=== PATIENT | male | born 1965 | race Caucasian/White ===

== ENCOUNTER 2016-09-25 10:32 | Day surgery (SDC) | payer OTHER ==
[2016-09-25] MEDS ORDERED: LIDOCAINE 1% 2 ML INJ ONE (10:42)
[2016-09-25] MEDS ORDERED: ceFAZolin 2 GM/DEXTROSE 100 ML IV ONE (11:00)
[2016-09-25] MEDS ORDERED: LR 1,000 ML IV ONE (11:19)
[2016-09-25] MEDS ORDERED: LIDOCAINE 1% 5 ML SDV ID PRN (11:19)
[2016-09-25 11:36] LABS: ANION GAP 10 mEq/L (8-16); CALCIUM 9.5 mg/dL (8.5-10.4); CARBON DIOXIDE 27 mEq/l (22-31); CHLORIDE 105 mEq/L (97-110); CREATININE 1.1 mg/dL (0.7-1.3); GLOMERULAR FILTRATION RATE > 60; GLUCOSE 77 mg/dL (70-100); POTASSIUM 4.3 mEq/L (3.5-5.2); SODIUM 142 mEq/L (134-144)
[2016-09-25] MEDS ORDERED: LIDOCAINE 2% 5 ML SDV ONE (11:46)
[2016-09-25] MEDS ORDERED: BUPIVACAINE 0.5% 30 ML SDV ONE (11:46)
[2016-09-25] MEDS ORDERED: DEXAMETHASONE 4 MG/ML VIAL ONE ×2 (11:46→12:06)
[2016-09-25] MEDS ORDERED: ROPIVACAINE HCL 20 MG/10 ML INJ EP ONE (11:47)
[2016-09-25] MEDS ORDERED: BACITRACIN 50,000 UNITS/10 ML SYR IRR ONE (11:47)
[2016-09-25] MEDS ORDERED: MIDAZOLAM 2 MG/2 ML VIAL ONE (11:52)
[2016-09-25] MEDS ORDERED: PROPOFOL/EMULSION 500 MG/50 ML BOTTLE IV ONE ×4 (12:06→13:54)
[2016-09-25] MEDS ORDERED: ONDANSETRON 4 MG/2 ML VIAL ONE (12:06)
[2016-09-25] MEDS ORDERED: fentaNYL 100 MCG/2 ML INJ ONE (12:06)
[2016-09-25] MEDS ORDERED: LIDOCAINE 2% 100 MG/5 ML SYR ONE (12:06)
[2016-09-25] MEDS ORDERED: LIDOCAINE 2% JELLY 5 ML TUBE ONE (12:07)
[2016-09-25] MEDS ORDERED: BUPIVACAINE 0.25% 30 ML SDV ONE (14:23)
[2016-09-25] MEDS ORDERED: KETOROLAC 30 MG/1 ML SDV ONE (15:16)
--- NOTE | 2016-09-25 21:46 | GOP ---
[f rep st] OPERATIVE REPORT DATE OF OPERATION: 09/25/2016 SURGEON: Karma Bowie DPM POWERHOUSE LABORER: Radha Bowie DPM. ANESTHESIA: MAC/light general. ANESTHESIOLOGIST: Chucky Parada MD. PREOPERATIVE DIAGNOSIS: Bunion, hallux valgus deformity, left foot. POSTOPERATIVE DIAGNOSIS: Bunion, hallux valgus deformity, left foot. PROCEDURE PERFORMED: Double osteotomy, first metatarsal osteotomy with screw fixation, and Carson procedure with plate and screw fixation, left foot. FINDINGS: SPECIMENS: No specimens sent to Pathology. ESTIMATED BLOOD LOSS: Less than 5 cc. INDICATIONS: The patient reports pain in the left foot for years, progressively getting worse. Big toe overlapping the other toe and causing irritation and problems in shoes. Most recently, a lot of irritation when wearing ski boot. At this time, he elects to proceed with surgery. Prior to his preoperative visit, x-rays were reviewed. Intermetatarsal angle measuring at 13.1 degrees. Significant deviation in the proximal articular set angle noted and significant increase in hallux abductus angle. Since JCARLOS not too high and foot type cavus and first ray without hypermobilty, the patient was given the options on distal osteotomies which would provide satisfactory correction, however, risk of under correction. The option of Lapidus procedure involving a more proximal bone cut for optimal alignment. Reviewed pros and cons of procedures and postoperative courses. The patient elected to proceed with the distal osteotomies at this time. DESCRIPTION OF PROCEDURE: Patient was brought into the operating room, placed on the operating table in the supine position. Intravenous sedation/light general administered by the anesthesiologist. A posterior tibial and peripheral nerve block was obtained utilizing a total of 22 cc of a 1:1:1 mix of 0.2% ropivacaine plain, 0.5% Marcaine plain, and 2% Xylocaine plain. The lower extremity was prepped and draped in usual sterile manner. After the limb had been elevated, it was exsanguinated with an Esmarch bandage and the ankle tourniquet was inflated to 235 mmHg and the procedure was begun. Webril padding utilized under the ankle cuff. Attention directed toward the dorsal aspect of the first metatarsophalangeal joint where a linear incision was created. Incision was carefully deepened with care of neurovascular structures, then clamped and cauterized bleeders. Hypertrophied medial eminence was identified, noted to be denuded of any cartilage, a section of the medial eminence was resected. Then attention was directed toward the more lateral aspect of the first metatarsal head where the tight adductor tendon was identified and released. McGlamery elevator used to release lateral adhesions.Note, with manipulation of the first metatarsal, there was little motion in the transverse plane, no hypermobility in the sagittal plane. Then utilizing a K-wire and a Alireza osteotomy guide, C-arm verifying alignment and positioning, osteotomy was created. Longer dorsal arm and shorter plantar arm, capital fragment was transposed laterally by 7 mm and impacted onto the shaft medially. Temporary fixation achieved with K-wires. C arm pictures to verify alignment and positioning. The [place] gorrilla system used, a headed 2.5 mm x 18 mm screw was placed across the osteotomy. Second point of fixation, a 2.5 mm headed screw was placed more proximally measuring 18 mm in length; however, there was no purchase with that screw, and therefore, it was removed. Note, there was difficulty removing the screw since the distal threads were distal to the plantar cortex and head kept rotating ,however it was then successfully removed. That second point of fixation was then achieved with a 3.0 mm screw measuring 14 mm in length and fully-threaded, excellent compression and stability noted. Temporary fixation removed. Remaining medial metaphyseal shelf resected. Sites smoothed until there were no sharp edges or spicules. With loading of the forefoot satisfactory alignment of the first metatarsal was noted. Carson procedure: Attention was directed toward the more distal aspect of the incision. The periosteum was reflected off the proximal phalanx. Utilizing a K -wire and Alireza osteotomy guide, sagittal saw, a wedge of bone was resected. The proximal apex was lateral with the base of the triangle distal medial. Section of bone was resected and then stabilized with a K-wire. Then, utilizing the [place] BeGo plate system, a 2-holed compression plate was placed across the osteotomy, locking screw placed proximally measuring 16 mm in length, and then the distal compression screw was placed, a 2.5 measuring 12 mm in length, satisfactory compression and stability achieved. Temporary fixation removed and the osteotomy was noted to be stable and congruent. Wound was irrigated with bacitracin irrigation solution. A T-capsulotomy was performed, capsule was closed with 2-0 and 3-0 Vicryl. Note, prior to closure, the extensor hallucis brevis was released to improve hallux alignment. Excellent alignment was noted of the hallux post distal osteotomy. Hallux was no longer touching the second digit. Tourniquet was released and a normal hyperemic response was noted to all digits. Subcutaneous closure achieved with 4-0 Monocryl. Skin was closed with 4-0 Prolene in a horizontal mattress and simple interrupted suture fashion. An additional 10 cc of 0.25% Marcaine plain was injected to enhance postoperative anesthesia. Dressings included Xeroform, 4 x 4's, fluffs, Aura, and an Nish bandage. Patient tolerated the procedure and anesthesia well and left the operating room with vital signs stable and vascular status intact to all digits. There were no intraoperative complications. In postoperative recovery, the patient was doing well. He was still quite sleepy when I tried to visit with him. I discussed with his significant other, girlfriend, and daughter how things went, all good. He is to follow up in the office in 2 days for wound check. PROGNOSIS: Good. /[id number]/MODL MTDD
== END 2016-09-25 17:55 | disposition home or self-care (01) ==
LOC: FSGY 10:32
PROVIDERS: ATTEND Podiatrist
DX: M20.12 Hallux valgus (acquired), left foot (principal); M21.612 Bunion of left foot; F31.9 Bipolar disorder, unspecified; E78.5 Hyperlipidemia, unspecified
CPT/HCPCS: 28299; 73630; C1769; C1713; J0690; J1100; J1885; J2001; J2250; J2405; J2704; J2795; J3010

== ENCOUNTER 2017-06-18 12:29 | Day surgery (SDC) | payer OTHER ==
[2017-06-18] MEDS ORDERED: LR 1,000 ML IV ONE (13:05)
[2017-06-18] MEDS ORDERED: LIDOCAINE 1% 2 ML INJ ID PRN (13:05)
[2017-06-18] MEDS ORDERED: MIDAZOLAM 2 MG/2 ML VIAL IVP ONE (14:05)
--- NOTE | 2017-06-18 14:05 | PDANEPAE ---
ANE History of Present Illness L foot neuroma excision ANE Past Medical History - Cardiovascular History Hx Hypertension: No Hx Arrhythmias: Yes Hx Chest Pain: No Hx Coronary Artery / Peripheral Vascular Disease: No Hx CHF / Valvular Disease: No Hx Palpitations: No Cardiovascular History Comment: afib/flutter - Pulmonary History Hx COPD: No Hx Asthma/Reactive Airway Disease: No Hx Recent Upper Respiratory Infection: No Hx Oxygen in Use at Home: No Hx Sleep Apnea: No Sleep Apnea Screening Result - Last Documented: Negative - Neurologic History Hx Cerebrovascular Accident: No Hx Seizures: No Hx Dementia: No - Endocrine History Hx Diabetes: No - Renal History Hx Renal Disorders: No - Liver History Hx Hepatic Disorders: No - Neurological & Psychiatric Hx Hx Neurological and Psychiatric Disorders: Yes Neurological / Psychiatric History Comment: anxiety - Cancer History Hx Cancer: No - Congenital Disorder History Hx Congenital Disorders: No - GI History Hx Gastrointestinal Disorders: No - Other Health History Other Health History: none - Chronic Pain History Chronic Pain: No - Surgical History Prior Surgeries: ablation 2013. cardio versions 2014 ANE Review of Systems Review of systems is: negative Review of Systems: - Exercise capacity Exercise capacity: >=4 METS METS (RN): 5 METS ANE Patient History - Allergies Allergies/Adverse Reactions: No Known Allergies Allergy (Verified 06/16/17 15:26) - Home Medications Home medications: home medication list seen and reviewed Home Medications: Herbals/Supplements -Info Only 04/19/14 [Last Taken 06/04/17] Multivitamins [Multivitamin (*)] 04/19/14 [Last Taken 06/15/17] [place]-3 Fatty Acids [Fish Oil 1000 mg (*)] 04/19/14 [Last Taken 06/04/17] QUEtiapine FUMARATE [Seroquel 25 mg (*)] 04/19/14 [Last Taken 06/18/17 00:00] lamoTRIgine [LamICTAL 100 MG (*)] 04/19/14 [Last Taken 06/18/17 00:00] - NPO status NPO Since - Liquids (Date): 06/18/17 NPO Since - Liquids (Time): 09:00 NPO Since - Solids (Date): 06/18/17 NPO Since - Solids (Time): 00:00 - Anes Hx Anes Hx: no prior problems - Smoking Hx Smoking Status: Never smoked - Family Anes Hx Family Anes Hx: none Family Hx Anesthesia Complications: none ANE Labs/Vital Signs - Vital Signs Blood Pressure: 138/94 Heart Rate: 50 Respiratory Rate: 18 O2 Sat (%): 96 Height: 182.88 cm Weight: 83.915 kg ANE Physical Exam - Airway Neck exam: FROM Mallampati Score: Class 1 Mouth exam: normal dental/mouth exam - Pulmonary Pulmonary: no respiratory distress - Cardiovascular Cardiovascular: regular rate and rhythym - ASA Status ASA Status: II ANE Anesthesia Plan Total IV Anesthesia: Yes
[2017-06-18] MEDS ORDERED: ceFAZolin 2 GM/SWFI 2 GM/20 ML SYR IVP ONE (15:06)
--- NOTE | 2017-06-18 15:07 | PDHPUP ---
History & Physical Update H&P update statement: This history and physical update is based on an assessment of the patient which was completed after admission or registration (within 24 hours), but prior to the surgery/procedure. no change in health
[2017-06-18] MEDS ORDERED: LIDOCAINE 1% 300 MG/30 ML SDV ONE (15:20)
[2017-06-18] MEDS ORDERED: DEXAMETHASONE 4 MG/ML VIAL ONE (15:21)
[2017-06-18] MEDS ORDERED: BUPIVACAINE 0.5% 30 ML SDV ONE (15:21)
[2017-06-18] MEDS ORDERED: CYANO/VITAMIN B12 1000 MCG/ML VIAL ONE (15:21)
[2017-06-18] MEDS ORDERED: ROPIVACAINE HCL 150 MG/30 ML INJ ONE (15:21)
[2017-06-18] MEDS ORDERED: BACITRACIN 50,000 UNITS/10 ML SYR IRR ONE (15:22)
[2017-06-18] MEDS ORDERED: PROPOFOL/EMULSION 500 MG/50 ML BOTTLE IV ONE ×2 (15:31→16:24)
[2017-06-18] MEDS ORDERED: LIDOCAINE 2% 100 MG/5 ML SYR ONE (15:31)
[2017-06-18] MEDS ORDERED: HYDROmorphONE/DILAUDID 1 MG/ML INJ IVP PRN (16:49)
[2017-06-18] MEDS ORDERED: fentaNYL 100 MCG/2 ML INJ IVP PRN (16:49)
[2017-06-18] MEDS ORDERED: ACETAMINOPHEN 500 MG TAB PO PRN (16:49)
[2017-06-18] MEDS ORDERED: NALOXONE HCL 0.4 MG/ML INJ IVP PRN (16:49)
[2017-06-18] MEDS ORDERED: HYDROCODONE/APAP 5/325 TAB PO PRN (16:49)
[2017-06-18] MEDS ORDERED: DEXAMETHASONE 4 MG/ML VIAL IVP PRN (16:49)
[2017-06-18] MEDS ORDERED: MEPERIDINE 25 MG/ML SYR IVP PRN (16:49)
[2017-06-18] MEDS ORDERED: ONDANSETRON 4 MG/2 ML VIAL IVP PRN (16:49)
[2017-06-18] MEDS ORDERED: OXYCODONE/APAP 5/325 TAB PO PRN (16:49)
--- NOTE | 2017-06-18 16:49 | POSTANESTH ---
Post Anesthetic Evaluation Cardiovascular Status: Normal, Stable, Similar to Pre-Op Cond Respiratory Status: Normal, Stable, Similar to Pre-op Cond. Level of Consciousness/Mental Status: Can Participate in Eval, Mildly Sleepy, Arousable Pain Control: Adequate, Prn Tx Ordered Nausea/Vomiting Control: Adequate, Prn Tx Ordered Complications Possibly Related to Anesthesia: None Noted
--- NOTE | 2017-06-18 17:17 | POSTOPPROG ---
Post Op Note Date of Operation: 06/18/17 Surgeon: Karma Bowie Janitor Custodian: none Anesthesiologist: Pre-op Diagnosis: neuroma 3rd IMS left, deep hardware hallux left Post-op Diagnosis: same Indication: pain with hardware, painful neuroma Procedure: excision of neuroma 3rd IMS ,Removal of plate and 2 screws hallux Leftfoot Findings: large neuroma 3rd Ims Inf/Abcess present in the surg proc area at time of surgery?: No Depth: Deep Incisional (Fascial) EBL: Minimal Complications: none Specimen(s): soft tissue sent to pathology for gross and micro exam.
[2017-06-18] MEDS ORDERED: KETOROLAC 30 MG/1 ML SDV IVP ONE (17:20)
[2017-06-18] MEDS ORDERED: KETOROLAC 30 MG/1 ML SDV ONE (17:25)
[2017-06-18 18:00] VITALS: PULSE 54; RESP 14; TEMP 97.5
[2017-06-18 18:33] VITALS: BP 147/92; O2SAT 98
--- NOTE | 2017-06-19 03:44 | GOP ---
[f rep st] OPERATIVE REPORT DATE OF OPERATION: 06/18/2017 SURGEON: Karma Bowie DPM ANESTHESIA: MAC/light general. ANESTHESIOLOGIST: Bruce Silverio MD PREOPERATIVE DIAGNOSIS: 1. Irritation of deep hardware, left hallux. 2. 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 POSTOPERATIVE DIAGNOSIS: 1. Irritation of deep hardware, left hallux. 2. 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 PROCEDURE PERFORMED: 1. Excision of neuroma 3rd intermetatarsal space, left foot. 2. Removal of hardware, hallux, left foot, plate and 2 screws. FINDINGS: soft tissue mass consistent with that of a neuroma left foot SPECIMENS: Pathology specimen sent for gross and microscopic examination. ESTIMATED BLOOD LOSS: Less than 5 cc. INDICATIONS: Hardware irritation, left hallux warranting removal. Pain 3rd intermetatarsal space consistent with that of a neuroma. Cortisone injections providing some temporary relief. The patient at this time elects to proceed with surgery. DESCRIPTION OF PROCEDURE: The patient was brought into the operating room, placed on the operating table in a supine position. Intravenous sedation administered by the anesthesiologist. A posterior tibial and peripheral nerve block was obtained utilizing a total of 16 cc of 1 to 1 to 1 mix of 0.5% bupivacaine, 0.5% ropivacaine, and 1% lidocaine plain. The lower extremity was prepped and draped in the usual sterile manner. After the limb was elevated, it was exsanguinated with an Esmarch bandage and the ankle tourniquet was inflated to 230 mmHg and the procedure was begun. Webril padding utilized under the ankle cuff. Procedure #1: Removal of hardware. Attention directed towards the dorsal medial base of the hallux where a linear incision was created measuring approximately 2 cm in length. Incision carefully deepened with care of neurovascular structures and clamp and cauterize bleeders. Incision through periosteum and plate and screws were easily identified and removed without any complications. Wound was irrigated with bacitracin irrigation solution. The periosteal tissue closed with 3-0 Vicryl, subcutaneous closure with 4-0 Monocryl and the skin was closed with 4-0 Prolene in a horizontal interrupted suture manner. Procedure #2: Excision neuroma 3rd intermetatarsal space. Incision created dorsal 3rd intermetatarsal space, carefully deepened with care of neurovascular structures and clamp and cauterize bleeders. With plantar pressure to web space , rubbery soft tissue mass consistent with that of a neuroma was easily identified. Its distal branches were identified to the 3rd and 4th digits and were transected. Scar tissue was noted in the area. The tight intermetatarsal ligament was released to allow for exposure of the proximal aspect of the nerve. With careful dissection and release from the surrounding fibrotic tissue , the nerve was transected at its level at the intrinsic muscles, proximal to the level of the metatarsal heads and removed from the wound in toto and sent to Pathology for gross and microscopic examination. The wound was carefully inspected and no other pathologic tissue was noted. There were 2 specimens sent to Pathology for gross and microscopic examination, the main fragment and then an additional section of tissue suspecting accessory branch that was extending to the 3rd digit. Tourniquet released, normal hyperemic response noted to all digits. Surgicel was utilized to help control bleeding. Subcutaneous closure achieved with 4-0 Monocryl. Skin was closed with 4-0 Prolene in a horizontal and interrupted suture manner. A separate stab incision had been created for exiting of a silastic drain that was secured with 4-0 Prolene. Dressings included Xeroform, 4 x 4's, fluffs, Aura, reinforced with tape and an Nish bandage. The patient tolerated the procedure and anesthesia well and left the operating room vital signs stable and vascular status intact to all digits. ADDITIONAL INJECTABLES: Included prior to transection of the nerve, 1 cc of Decadron, 1 cc of B12 and 2 cc of 0.5% ropivacaine. Additional 4 cc of ropivacaine/lidocaine was injected to help postoperative anesthesia. POSTOPERATIVE RECOVERY: Patient was doing well. He is to follow up in our office in 2 days for wound check. Prognosis good. /[id number]/MODL MTDD
== END 2017-06-18 18:32 | disposition home or self-care (01) ==
LOC: FSGY 12:29
PROVIDERS: ATTEND Podiatrist
PROC: 01BG0ZZ Excision of Tibial Nerve, Open Approach (ICD-10-PCS; principal; 2017-06-18 13:45)
PROC: 0QPP04Z Removal of Internal Fixation Device from Left Metatarsal, Open Approach (ICD-10-PCS; principal; 2017-06-18 13:45)
DX: G57.82 Other specified mononeuropathies of left lower limb (principal); T84.84XA Pain due to internal orthopedic prosthetic devices, implants and grafts, initial encounter; I48.91 Unspecified atrial fibrillation
CPT/HCPCS: J0690; J1100; J1885; J2001; J2250; J2704; J2795

== ENCOUNTER → 2017-10-20 | Outpatient (CLI) | payer OTHER | LOC: FIMAGING 16:01 | PROVIDERS: ATTEND Physician Assistant | DX: J40 Bronchitis, not specified as acute or chronic (principal) ==